=== PATIENT | female | born 1965 | race Caucasian/White ===

== ENCOUNTER 2024-01-18 18:16 | Emergency (ER) | payer OTHER, SELFPAY ==
[2024-01-18 18:19] VITALS: BP 168/83
--- NOTE | 2024-01-18 18:48 | ED.GENMED ---
History of Present Illness
General
Chief Complaint: Musculo-Skeletal Complaint
Source: patient
Time Seen by Provider: 01/18/24 18:44
Travel History
Have you had any contact with someone who has COVID-19?: No
Do you have any symptoms of coronavirus? Fever > 100 degrees, chills, cough, shortness of breath, sore throat, loss of taste or smell, muscle aches, or headache?: No
History of Present Illness
History of Present Illness:
59-year-old female with past medical history of COPD, hyperlipidemia, diabetes presenting to the emergency department for evaluation of atraumatic right knee pain that she believes started while attempting to sit yesterday, noting 10 out of 10 pain
intermittently, will at times be about a 7 out of 10 and somewhat improved with Motrin and Tylenol. Patient states the pain is mainly along the medial aspect of the knee. She denies any exacerbating factors. Denies any previous history of injury
or any other concerns. Denies any calf pain or edema.
Past History
Past History
ED Past Medical History: COPD, NIDDM and Psychiatric
ED Past Surgical History: and Orthopedic
Social History
Tobacco: Smoker
Alcohol: None
Drug: None
Personal:
Living: with family
Family History
Family History: Diabetes
Review of Systems
Review of Systems
All Other Systems: ROS reviewed and negative except as documented in HPI and ROS
Phy Exam
Physical Exam
Physical Exam:
GENERAL: Alert , in no apparent distress
EYE: conjunctiva clear
Head: Normocephalic atraumatic
NECK: Supple,
ENT: mmm.
LUNGS: no acute respiratory distress
NEUROLOGICAL: Alert and oriented
SKIN: Warm and dry, skin intact.
MUSCULOSKELETAL: Right lower extremity/knee: No obvious deformity, erythema, edema, ecchymosis, abrasions or lacerations. There is no joint effusion. Patient allows for full range of motion of her right knee without difficulty. No focal areas of
tenderness to palpation. Extremity is otherwise warm and well-perfused without signs of trauma.
PSYCH: Normal and appropriate interaction.
Scores
Heart Failure Risk
Heart Failure Risk Score: Not Applicable
Heart Score for Chest Pain Patients
STEMI patient?: Not applicable
Withdrawal Assessment of Alcohol
Withdrawal Assessment Completed?: Not applicable
Course
Orders/Labs/Results
Orders:
Orders
01/18/24 18:18
Knee, Right 4 or More Views [CR Knee- Right 4 Or More View*] Urgent
Comment:
Reason For Exam: Pain since yesterday
Vital Signs
Initial and Last Documented VS:
Initial Vital Signs
Temp Pulse Resp BP Pulse Ox
98.8 F 100 17 168/83 99
01/18/24 18:19 01/18/24 18:19 01/18/24 18:19 01/18/24 18:19 01/18/24 18:19
Last Documented Vital Signs
Temp Pulse Resp BP Pulse Ox
98.8 F 100 17 168/83 99
01/18/24 18:19 01/18/24 18:19 01/18/24 18:19 01/18/24 18:19 01/18/24 18:19
MDM/Problems Addressed
Differential Diagnosis Includes:
Knee sprain, contusion, I do not have concern for fracture or dislocation or infectious etiology
MDM/Problems Addressed:
Patient presented emergency department for evaluation of right knee pain that started while attempting to sit in a chair yesterday. There is no obvious deformity or any signs of infection on exam. X-ray was ordered from triage and is negative for
any acute pathology. I did discuss with patient possibility of either meniscus injury or ligamentous injury but given the mechanism I am less suspicious for this. Patient notes she has seen [facility] orth[facility] for other orthopedic injuries in the
past. I advise close follow-up with them. Continued NSAIDs/Tylenol as needed for pain, ice and elevation. Discussed return precautions. Patient is otherwise stable for discharge home.
*Radiology
Radiology exam reviewed: preliminary read by ED provider (No acute fracture)
*Pulse Oximetry
Patient hypoxic: no
*Critical Care Note
Total Time (30-74mins, 75-104mins- exclusive of procedures): Not Applicable
ED Attending Note
-
Portions of this chart may have been created with voice recognition software.� Occasional wrong word or��sound alike� substitutions may have occurred due to the inherent limitations of voice recognition software.
Discharge Plan
Departure
Patient Disposition: Home (Routine Discharge)
Date of Disposition: 01/18/24
Time of Disposition: 18:48
Patient with high blood pressure during this ER visit?: Yes
Discharge Problem:
Pain in right knee
Instructions: Knee Pain (DC)
Prescriptions:
No Action
ziprasidone HCl [Geodon] 80 MG capsule
160 mg PO HS
venlafaxine 75 MG capsule,extended release 24hr
75 mg PO DAILY
tolterodine 4 MG capsule,extended release 24hr
4 mg PO DAILY
venlafaxine [Effexor XR] 150 MG capsule,extended release 24hr
150 mg PO DAILY
Patient Comments:
150mg +75mg
simvastatin 40 MG tablet
DAILY
haloperidol 10 MG tablet
10 mg PO HS
bupropion HCl [Wellbutrin XL] 300 MG tablet extended release 24 hr
300 mg PO DAILY
Flonase Nasal [place]:
DAILY
METFORMIN HCl
BID
Prevacid
40 mg DAILY
[place]:
DAILY
hydrocodone-acetaminophen [Vicodin] 1 EACH tablet
1 ea PO Q6HPRN PRN (Reason: pain) Qty: 14 0RF
amoxicillin-pot clavulanate 875 MG/125 MG tablet
1 tab PO Q12 Qty: 30 0RF
clindamycin HCl 150 MG capsule
300 mg PO QID Qty: 56 0RF
clindamycin HCl 150 MG capsule
300 mg PO QID Qty: 56 0RF
prednisone 50 MG tablet
50 mg PO DAILY Qty: 4 0RF
tramadol 50 MG tablet
50 mg PO Q8 Qty: 15 0RF
Referrals:
Augusto Johnston MD [Active] - (Call for appointment)
== END 2024-01-18 19:08 | disposition home or self-care (01) ==
LOC: EMR 18:16
PROVIDERS: EMERGENCY PHYSICIAN Emergency Medicine; FAMILY PHYSICIAN Family Medicine
DX: M25.561 Pain in right knee (principal); J44.9 Chronic obstructive pulmonary disease, unspecified; E78.5 Hyperlipidemia, unspecified; E11.9 Type 2 diabetes mellitus without complications; F17.200 Nicotine dependence, unspecified, uncomplicated; Z83.3 Family history of diabetes mellitus
CPT/HCPCS: 99283; 73564